=== PATIENT | female | born 1965 | race African-American/Black ===

== ENCOUNTER 2021-05-06 14:43 | Emergency (ER) | payer MEDICAID, SELFPAY ==
--- NOTE | ~2021-05-06 | CT_ITS ---
EXAMINATION: CT ABDOMEN AND PELVIS WITHOUT CONTRAST CLINICAL INFORMATION: Left lower quadrant pain with history of diverticulitis COMPARISON: None TECHNIQUE: Multidetector volumetric imaging was performed from the superior aspect of the liver through the pubic symphysis. Sagittal and coronal reformatted images were obtained on the technologist's workstation. This CT examination was performed using dose optimization techniques as appropriate, variously including the following: *Automated exposure control *Adjustment of mA and/or kV according to patient size (this includes techniques or standardized protocols for targeted exams where dose is matched to indication/reason for exam; i.e. extremities or head) *Use of iterative reconstruction technique DLP: 495 mGy-cm FINDINGS: LUNG BASES: The visualized lung bases are unremarkable. LIVER, GALLBLADDER, AND BILIARY TREE: The liver is normal in size, shape, and attenuation. There is an area of focal low-attenuation attenuation seen around the falciform ligament which measures near water density but I suspect that this represents focal fat infiltration. No other focal hepatic lesion or biliary ductal dilatation is present. The gallbladder is unremarkable with no evidence of radiopaque gallstones, gallbladder wall thickening, or obvious pericholecystic inflammatory changes. PANCREAS: There is marked fatty infiltration of the pancreas with almost no pancreatic parenchyma remaining. SPLEEN: Unremarkable. ADRENAL GLANDS: Unremarkable. KIDNEYS AND URETERS: The kidneys are normal in size, shape, and attenuation. No hydronephrosis, hydroureter, or calculi seen. No perinephric stranding. BLADDER: Unremarkable. GASTROINTESTINAL TRACT: A small hiatal hernia is present. Diverticular changes are present in the colon but there is no evidence of diverticulitis. The small and large bowel are unremarkable. The appendix is unremarkable. ABDOMINAL WALL: No significant hernia is appreciated. LYMPH NODES: No retroperitoneal lymphadenopathy. VASCULAR: Unremarkable. PELVIC VISCERA: An anteverted uterus is present. An abnormal pelvic mass or free fluid is not seen. OSSEOUS STRUCTURES: Unremarkable. CT/CT abdomen pelvis wo con IMPRESSION: 1. A cause for the patient's acute left lower quadrant pain has not been found. 2. There is colonic diverticulosis without diverticulitis. 3. Marked fatty infiltration of the pancreas. 4. Focal area of low attenuation around the falciform ligament most likely represents focal fatty infiltration. This could be confirmed with MRI.
[2021-05-06 15:57] VITALS: BP 131/56; PULSE 73; RESP 18; TEMP 37.5; O2SAT 100; BMI 29.6
--- NOTE | 2021-05-06 15:59 | ED.ABDPAIN ---
HPI - Abdominal Pain General Stated Complaint: Multiple complaints Time Seen by Provider: 05/06/21 15:57 Related Data Allergies Allergy/AdvReac Type Severity Reaction Status Date / Time No Known Allergies Allergy Verified 05/06/21 15:58 Course Course Course Narrative: 4pm - 55-year-old female with a past medical history of diverticulitis presenting to the ED with complaints of nausea/vomiting and left lower quadrant abdominal pain for the past 4 days worse today. Will obtain labs and UA and send the patient back to the waiting room at this time until she is called for further evaluation treatment into the emergency department.
[2021-05-06 16:28] LABS: MANUAL DIFF FLAG NO
[2021-05-06 16:31] LABS: Basophils Percent Auto 0.2 % (0-2); Eosinophils Percent Auto 0.4 % (0-4); Hematocrit 35.2 % (37-47); Hemoglobin 11.8 g/dl (12.0-16.0); Imm Gran Abs Auto 0.04 X10*3/uL (0.00-0.03); Imm Gran Pct Auto 0.4 % (0.0-0.4); Lymphocytes Absolute Auto 4.6 X10*3/uL (1.2-4.9); Lymphocytes Percent Auto 50.7 % (20-40); Mean Corpuscular HGB Conc 33.5 g/dl (31.0-35.0); Mean Corpuscular Hemoglobin 30.5 pg (27.0-33.0); Mean Platelet Volume 10.1 fL (9.4-12.3); Monocytes Absolute Auto 0.5 X10*3/uL (0.1-1.2); Neutrophils Absolute Auto 3.8 X10*3/uL (2.0-8.3); Neutrophils Percent Auto 42.3 % (45-73); Platelet Count 223 X10*3/uL (160-400); Red Blood Count 3.87 X10*6/uL (4.20-5.50)
[2021-05-06 16:55] LABS: Alanine Aminotransferase 16 U/L (0-31); Albumin Level 4.3 g/dL (3.5-5.0); Alkaline Phosphatase 91 U/L (39-117); Anion Gap 16 (12-20); Aspartate Amino Transferase 31 U/L (5-31); Bilirubin Total 0.3 mg/dL (0.0-1.0); Blood Urea Nitrogen 12 mg/dL (9-16); Calcium 9.7 mg/dL (8.4-10.2); Carbon Dioxide 24 mmol/L (22-29); Chloride 106 mmol/L (96-108); Creatinine Clr Calc Pharmacy 60.9; Estimated Glomerular Filt Rate > 60; Glucose Random 109 mg/dL (60-115); Magnesium 1.9 mg/dL (1.6-2.6); Potassium 3.9 mmol/L (3.3-5.1); Sodium 142 mmol/L (135-145); Total Protein 7.1 g/dL (6.5-8.0)
[2021-05-06 16:57] LABS: Leukocyte Esterase Urine NEG (NEG); Specific Gravity - Urine 1.025 (1.005-1.025); Urine Blood NEG (NEG); Urine Ketones 40 MG/DL (NEG); Urine Protein 2+ MG/DL (NEG-TRACE)
[2021-05-06 17:14] LABS: Appearance Urine CLEAR; Color Urine ORANGE; Nitrite Urine NEG (NEG)
[2021-05-06 17:17] LABS: Glucose Urine UA 100 MG/DL (NEG)
[2021-05-06 17:20] LABS: Bacteria Urine TRACE /LPF; RBC Urine 0-2 /HPF (0); Squamous Epithelial Cell Urine TRACE /LPF; WBC Urine 0-2 /HPF (0-4)
--- NOTE | 2021-05-06 19:57 | ED.ABDPAIN ---
HPI - Abdominal Pain General Chief Complaint: Abdominal Pain Stated Complaint: Multiple complaints Time Seen by Provider: 05/06/21 15:57 Source: patient Mode of arrival: ambulatory Limitations: no limitations History of Present Illness MD elicited complaint: abdominal pain Pertinent past history: diverticulitis Onset (ago): day(s) (4) Pain Consistency: constant Location: LLQ Severity: moderate Quality: cramping Radiation: none Exacerbating factors: nothing Relieving factors: nothing Context: possible food poisoning and history of similar episodes Associated symptoms: nausea and vomiting Related Data Previous Rx's Medication Instructions Recorded amoxicillin-pot clavulanate 1 tab PO BID #14 tab 05/06/21 [Augmentin] cyclobenzaprine 10 mg PO TID PRN #14 tab 05/06/21 dicyclomine 20 mg PO TID PRN #30 tab 05/06/21 ondansetron 4 mg PO Q8H PRN #20 tab 05/06/21 Allergies Allergy/AdvReac Type Severity Reaction Status Date / Time No Known Allergies Allergy Verified 05/06/21 15:58 Review of Systems Review of Systems Constitutional : No Weight loss, No Fever, No Chills ENT/Mouth : No sore throat, No Rhinorrhea Eyes: No Swelling, No Redness Cardiovascular : No Chest Pain, No SOB, NoEdema Respiratory : No Cough, No Sputum, No Wheezing Gastrointestinal : Positive Nausea, Positive Vomiting, no Diarrhea, positive abdominal Pain, No Hematochezia, No Melena Genitourinary : No Dysuria, No Urinary Frequency, No Hematuria, No Urgency Musculoskeletal : No joint pain, No Myalgias, No Joint Swelling Skin : No Skin Lesions, No rash Neuro : No Weakness, No Numbness, No Dizziness, No Headache Psych : No Anxiety/Panic, No Depression Heme/Lymph: No Bruising, No Lymphadenopathy Endocrine : No Polyuria, No Polydipsia All other systems reviewed and are negative. Physical Exam Vital Signs: Vital Signs: Last Vital Signs Temp 99.5 F 05/06/21 15:57 Pulse 73 05/06/21 15:57 Resp 18 05/06/21 15:57 BP 131/56 L 05/06/21 15:57 Pulse Ox 100 05/06/21 15:57 Body Mass Index 29.6 Appearance: Alert. Oriented X3. No acute distress. Eyes: Pupils equal, round and reactive to light. ENT: Pharynx normal. Neck: Normal inspection. Neck supple. CVS: Normal heart rate and rhythm. Pulses normal. Respiratory: No respiratory distress. Breath sounds normal. Abdomen: Soft and mild LLQ pain no rebound or guarding Skin: Skin warm and dry. Normal skin color. Normal skin turgor. Extremities: No lower extremity edema. No calf ttp Neuro: Oriented X 3. No motor deficit. No sensory deficit. Course Course Course Narrative: non con CT scan but could be clinical diverticulitis given symptoms will start on augmentin and refer to PCP MDM - Abdominal Pain MDM Narrative Medical decision making narrative: 55 yo female hx of diverticulitis LLQ pain and nausea but able to tolerate PO now she states she just wants a CT scan to see if she has diverticulitis, refusing IV line and fluids at this time, will obtain [facility]. Lab Data Result diagrams: 05/06/21 16:21 05/06/21 16:21 Labs: Lab Results 05/06/21 05/06/21 05/06/21 Range/Units 16:21 16:21 16:21 WBC 9.0 (4.8-10.8) X10*3/uL RBC 3.87 L (4.20-5.50) X10*6/uL Hgb 11.8 L (12.0-16.0) g/dl Hct 35.2 L (37-47) % MCV 91.0 (80-98) fL MCH 30.5 (27.0-33.0) pg MCHC 33.5 (31.0-35.0) g/dl RDW 14.0 (11.0-16.0) % Plt Count 223 (160-400) X10*3/uL MPV 10.1 (9.4-12.3) fL Immature Gran % (Auto) 0.4 (0.0-0.4) % Neut % (Auto) 42.3 L (45-73) % Lymph % (Auto) 50.7 H (20-40) % Angelina % (Auto) 6.0 (2-11) % Eos % (Auto) 0.4 (0-4) % Baso % (Auto) 0.2 (0-2) % Lymph # (Auto) 4.6 (1.2-4.9) X10*3/uL Angelina # (Auto) 0.5 (0.1-1.2) X10*3/uL Eos # (Auto) 0.0 (0.0-0.4) X10*3/uL Baso # (Auto) 0.0 (0.0-0.2) X10*3/uL Abs Immat Gran (auto) 0.04 H (0.00-0.03) X10*3/uL Absolute Neuts (auto) 3.8 (2.0-8.3) X10*3/uL Absolute Nucleated RBC 0.000 (0.0-0.012) X10*3/uL Nucleated RBC % (auto) 0.0 (0.0-0.2) /100WBC Sodium 142 (135-145) mmol/L Potassium 3.9 (3.3-5.1) mmol/L Chloride 106 (96-108) mmol/L Carbon Dioxide 24 (22-29) mmol/L Anion Gap 16 (12-20) BUN 12 (9-16) mg/dL Creatinine 0.81 (0.5-1.4) mg/dL Estim Creat Clear Calc 60.9 Estimated GFR > 60 Random Glucose 109 (60-115) mg/dL Calcium 9.7 (8.4-10.2) mg/dL Magnesium 1.9 (1.6-2.6) mg/dL Total Bilirubin 0.3 (0.0-1.0) mg/dL AST 31 (5-31) U/L ALT 16 (0-31) U/L Alkaline Phosphatase 91 (39-117) U/L Total Protein 7.1 (6.5-8.0) g/dL Albumin 4.3 (3.5-5.0) g/dL Urine Color ORANGE Urine Appearance CLEAR Urine pH 5.0 (5.0-8.0) Ur Specific [place] 1.025 (1.005-1.025) Urine Protein 2+ H (NEG-TRACE) MG/DL Urine Glucose (UA) 100 H (NEG) MG/DL Urine Ketones 40 (NEG) MG/DL Urine Blood NEG (NEG) Urine Nitrite NEG (NEG) Ur Leukocyte Esterase NEG (NEG) Urine RBC 0-2 (0) /HPF Urine WBC 0-2 (0-4) /HPF Ur Squamous Epith Cells TRACE /LPF Urine Bacteria TRACE /LPF Discharge Plan Discharge Clinical Impression: Diverticulosis Abdominal pain Qualifiers: Abdominal location: left lower quadrant Qualified Code(s): R10.32 - Left lower quadrant pain Patient Disposition: Home, Self-Care Instructions: Diverticulosis (ED), Abdominal Pain (ED) Additional Instructions: return to ED for any worsening symptoms or concerns Prescriptions: New cyclobenzaprine 10 mg tablet 10 mg PO TID PRN (Reason: muscle spasm) Qty: 14 RF: 0 dicyclomine 20 mg tablet 20 mg PO TID PRN (Reason: abdominal discomfort) Qty: 30 RF: 0 ondansetron 4 mg tablet,disintegrating 4 mg PO Q8H PRN (Reason: nausea and vomiting) Qty: 20 RF: 0 amoxicillin-pot clavulanate [Augmentin] 875-125 mg tablet 1 tab PO BID Qty: 14 RF: 0 Referrals: Physician,Unknown [Primary Care Provider] - 3 days Stand Alone Forms: Work/School Release REPLACED BY [facility] Past Medical History Attestation statement: The following information was validated with the patient. Medical History Acute diverticulitis Arthritis Asthma Fibromyalgia Scoliosis Social History Social History (Updated 05/06/21 @ 20:03 by Akosua Chery DO) Patient Tobacco Use Status: Never used Tobacco Use of substances other than those prescribed or required for medical reasons: No Advance Directives: No Advance Directives Information Provided: Yes Patient : No
== END 2021-05-06 21:56 | disposition home or self-care (01) ==
PROVIDERS: Physician Assistant Medical; Emergency Provider Emergency Medicine
DX: K57.30 Diverticulosis of large intestine without perforation or abscess without bleeding (principal); R10.32 Left lower quadrant pain; Z79.899 Other long term (current) drug therapy
CPT/HCPCS: 36415; 74176; 80053; 81001; 81003; 83735; 85025; 99283

== ENCOUNTER 2022-08-01 | Outpatient (REF) | payer MEDICAID, SELFPAY | END 2022-08-01 00:01 | disposition home or self-care (01) | LOC: HO.HOSX | PROVIDERS: Visit Provider Physician Assistant | DX: Z13.89 Encounter for screening for other disorder (principal) ==

== ENCOUNTER 2022-08-09 | Outpatient (REF) | payer MEDICAID, SELFPAY ==
--- NOTE | ~2022-08-09 | XR_ITS ---
EXAMINATION: XR HAND, LEFT CLINICAL INFORMATION: Pain COMPARISON: None TECHNIQUE: PA, lateral, and oblique views of the left hand. FINDINGS: No acute visible fracture or dislocation. Mild multi joint arthritic changes greatest at the first carpometacarpal joint. Very slight negative ulnar variance. Joint spaces and alignment are otherwise maintained. Soft tissues are unremarkable. XR/XR hand LT min 3V IMPRESSION: 1. No acute visible fracture or dislocation. 2. Mild multi joint arthritic changes greatest at the first carpometacarpal joint.
== END 2022-08-09 00:01 | disposition home or self-care (01) ==
LOC: HO.HOSX
PROVIDERS: Visit Provider Physician Assistant
DX: G56.02 Carpal tunnel syndrome, left upper limb (principal)
CPT/HCPCS: 73130; 99202

== ENCOUNTER 2022-10-04 08:25 | Outpatient (REF) | payer MEDICAID, SELFPAY ==
--- NOTE | 2022-10-04 08:27 | EMG_ITS ---
Please see scanned EMG / Nerve Conduction Report. MTDD
== END 2022-10-04 08:26 | disposition home or self-care (01) ==
LOC: HO.NEURO 08:25
PROVIDERS: Visit Provider Physician Assistant
DX: R20.0 Anesthesia of skin (principal); R20.2 Paresthesia of skin
CPT/HCPCS: 95885; 95913

== ENCOUNTER → 2022-11-09 15:29 | Outpatient (BNVA) | payer MEDICAID, SELFPAY | PROVIDERS: Visit Provider Physician Assistant | DX: Z13.89 Encounter for screening for other disorder (principal) ==

== ENCOUNTER 2023-06-01 14:34 | Outpatient (REF) | payer MEDICAID, SELFPAY ==
[2023-06-02 03:37] LABS: Syphilis Screen Nonreactive (Nonreactive)
[2023-06-02 04:00] LABS: ~Hepatitis C Antibody Nonreactive (Nonreactive)
[2023-06-02 04:05] LABS: HIV AB/AG Nonreactive (Nonreactive); HIV Num 1 0.05 S/CO (0.00-0.99)
== END 2023-06-01 14:35 | disposition home or self-care (01) ==
LOC: HO.HHCL 14:34
PROVIDERS: Visit Provider Nurse Practitioner Primary Care
DX: Z11.3 Encounter for screening for infections with a predominantly sexual mode of transmission (principal); Z11.4 Encounter for screening for human immunodeficiency virus [HIV]
CPT/HCPCS: 36415; 86780; 86803; 87389